=== PATIENT | female | born 1950 | race Caucasian/White ===

== ENCOUNTER 2016-08-08 16:17 | Emergency (ER) | payer MEDICARE, OTHER ==
[~2016-08-08] VITALS: Ht 160 cm; Wt 70.3 kg
[2016-08-08 19:36] LABS: BASOPHILS % (AUTO) 0.6 % (0.0-2.0); DIFF TOTAL % 100 %; EOSINOPHILS # (AUTO) 0.2 /CMM (0.0-0.7); HEMATOCRIT 39 % (33-45); HEMOGLOBIN 12.5 g/dL (11.5-14.8); LYMPHOCYTES # (AUTO) 2.2 /CMM (0.8-4.8); LYMPHOCYTES % (AUTO) 37.2 % (20.0-44.0); MEAN CORPUSCULAR HEMOGLOBIN 25 PG (26.0-33.0); MEAN CORPUSCULAR HGB CONC 32 g/dl (31.0-36.0); MEAN CORPUSCULAR VOLUME 77 fL (82-100); MONOCYTES # (AUTO) 0.5 /CMM (0.1-1.30); MONOCYTES % (AUTO) 7.9 % (2.0-12.0); NEUTROPHILS # (AUTO) 2.9 /CMM (1.8-8.9); NEUTROPHILS % (AUTO) 51.3 % (43.0-81.0); PLATELET COUNT (AUTO) 198 /CMM (150-450); RED BLOOD CELL COUNT(AUTO) 5.05 MIL/uL (4.0-5.2); WHITE BLOOD COUNT (AUTO) 5.8 K/uL (4.3-11.0)
[2016-08-08 19:43] LABS: ANION GAP 10 (5-14); CALCIUM, SERUM 9.7 mg/dL (8.5-10.1); CARBON DIOXIDE 29 mmol/L (21-32); CHLORIDE 107 mmol/L (98-107); CREATININE 0.7 mg/dL (0.6-1.3); GFR 84 mL/min (>60); GLUCOSE 105 mg/dL (74-106); POTASSIUM 3.5 mmol/L (3.5-5.1); SODIUM SERUM 142 mmol/L (136-145); UREA NITROGEN, BLOOD 11 mg/dL (7-18)
[2016-08-08 19:49] LABS: ALANINE AMINOTRANSFERASE 15 U/L (12-78); ALBUMIN 3.1 g/dL (3.4-5.0); ASPARTATE AMINOTRANSFERASE 14 U/L (15-37); BILIRUBIN,DIRECT 0.1 mg/dL (0.0-0.2); BILIRUBIN,TOTAL 0.4 mg/dL (0.2-1.0); INDIRECT BILIRUBIN 0.3 mg/dL (0.0-1.1); TOTAL PROTEIN, SERUM 7.1 g/dL (6.4-8.2)
[2016-08-08 20:14] LABS: SALICYLATE 1.1 mg/dL (2.8-20.0)
[2016-08-08 20:15] LABS: ACETAMINOPHEN 0 ug/ml (10-30)
[2016-08-08 21:12] VITALS: BP 155/80
== END 2016-08-08 21:14 | disposition home or self-care (01) ==
LOC: ER 16:23
DX: K62.89 Other specified diseases of anus and rectum (principal); I10 Essential (primary) hypertension; Z88.5 Allergy status to narcotic agent; Z88.8 Allergy status to other drugs, medicaments and biological substances; T76.11XA Adult physical abuse, suspected, initial encounter; Y92.89 Other specified places as the place of occurrence of the external cause; Y93.89 Activity, other specified; Y99.9 Unspecified external cause status
CPT/HCPCS: 36415; 80048; 80076; 85025; 99284; A4606; G0480; G0481; G0482; G6038-TC; G6039-TC; G6040-TC; Z7610

== ENCOUNTER 2017-04-29 10:44 | Inpatient (IN) | payer MEDICARE, OTHER ==
[~2017-04-29] VITALS: Ht 162.6 cm; Wt 68.0 kg
--- NOTE | 2017-04-29 10:50 | NUR ---
PAPO FROM [facility] DT GENERALIZED BODY PAIN AND LOST OF APPETITE X 2 DAYS;. PATIENT IS AA04. DENIES ABDOMINAL PAIN, SKIN IS WARM TO TOUCH AND NON DIAPHORETIC. PATIENT IS AFEBRILE. VSS
--- NOTE | 2017-04-29 10:54 | NUR ---
MD TRAN AT
[2017-04-29] MEDS ORDERED: IV NS 0.9% 1,000 ML BAG IV ONE ×2 (11:00→12:00)
[2017-04-29 11:11] LABS: BASOPHILS # (AUTO) 0.2 /CMM (0.0-0.2); EOSINOPHILS # (AUTO) 0.1 /CMM (0.0-0.7); EOSINOPHILS % (AUTO) 0.3 % (0.0-6.0); HEMATOCRIT 41 % (33-45); HEMOGLOBIN 13.9 g/dL (11.5-14.8); LYMPHOCYTES # (AUTO) 0.5 /CMM (0.8-4.8); LYMPHOCYTES % (AUTO) 2.9 % (20.0-44.0); MEAN CORPUSCULAR HEMOGLOBIN 27 PG (26.0-33.0); MEAN CORPUSCULAR HGB CONC 34 g/dl (31.0-36.0); MEAN CORPUSCULAR VOLUME 78 fL (82-100); MONOCYTES # (AUTO) 0.8 /CMM (0.1-1.30); NEUTROPHILS # (AUTO) 15.1 /CMM (1.8-8.9); NEUTROPHILS % (AUTO) 90.8 % (43.0-81.0); PLATELET COUNT (AUTO) 96 /CMM (150-450); RDW COEFFICIENT OF VARIATION 12.2 (11.5-15.0); RED BLOOD CELL COUNT(AUTO) 5.18 MIL/uL (4.0-5.2); WHITE BLOOD COUNT (AUTO) 16.7 K/uL (4.3-11.0)
--- NOTE | 2017-04-29 11:18 | NUR ---
IV ACCESS STARTED. BLOOD AND CULTURES DRAWN. FC INITIATEDM URINE SAMPLE OBTAINED. ALL SENT TO LABS. PT MEDICATED ORDERED.
[2017-04-29 11:22] LABS: APPEARANCE,URINE Turbid (CLEAR); BILIRUBIN,URINE Negative (NEGATIVE); BLOOD, URINE Large Ery/uL (NEGATIVE); COLOR,URINE Yellow (YELLOW); KETONES,URINE Negative (NEGATIVE); LEUKOCYTE ESTERASE ,URINE Large (NEGATIVE); NITRITE, URINE Negative (NEGATIVE); PH,URINE 8.5 (5.0-8.0); PROTEIN,URINE >=300 mg/dl (NEGATIVE); UGLUCOSE Negative (NEGATIVE)
[2017-04-29 11:24] LABS: INR 1.12 (0.87-1.13); PROTHROMBIN TIME 11.6 SECS (9.5-12.7)
[2017-04-29 11:26] LABS: BACTERIA,URINE Many /HPF (None Seen); RBC,URINE 0-3 /HPF (0-2); WBC,URINE 80-100 /HPF (0-3)
[2017-04-29 11:26] LABS: ALANINE AMINOTRANSFERASE 19 U/L (12-78); ALBUMIN 2.4 g/dL (3.4-5.0); ALKALINE PHOSPHATASE 117 U/L (46-116); ASPARTATE AMINOTRANSFERASE 15 U/L (15-37); BILIRUBIN,DIRECT 1.8 mg/dL (0.0-0.2); BILIRUBIN,TOTAL 2.3 mg/dL (0.2-1.0); CALCIUM, SERUM 9.1 mg/dL (8.5-10.1); CARBON DIOXIDE 20 mmol/L (21-32); CHLORIDE 92 mmol/L (98-107); CREATININE 3.9 mg/dL (0.6-1.3); GLUCOSE 132 mg/dL (74-106); POTASSIUM 3.1 mmol/L (3.5-5.1); SODIUM SERUM 125 mmol/L (136-145); TOTAL PROTEIN, SERUM 6.8 g/dL (6.4-8.2)
[2017-04-29 11:27] LABS: SQUAMOUS EPITHELIAL CELL,UR Few /HPF (None Seen)
[2017-04-29 11:28] LABS: TROPONIN I < 0.017 ng/mL (0.00-0.056)
[2017-04-29 11:31] LABS: UREA NITROGEN, BLOOD 92 mg/dL (7-18)
[2017-04-29] MEDS ORDERED: DULO60CA45 PO (11:39)
[2017-04-29] MEDS ORDERED: BACL10TA PO (11:39)
[2017-04-29] MEDS ORDERED: LORA0.5T PO (11:39)
[2017-04-29] MEDS ORDERED: HYDR25TA4 PO (11:39)
[2017-04-29] MEDS ORDERED: CALC500T51 PO (11:39)
[2017-04-29] MEDS ORDERED: ACET-868 PO (11:39)
[2017-04-29] MEDS ORDERED: CEFTRIAXONE 1GM BAG (ER ONLY) 50 ML IV ONE ×2 (11:42→12:00)
--- NOTE | 2017-04-29 11:47 | NUR ---
CALLED [employer], PLUSH FINISHER WAS PAGED.
[2017-04-29 12:34] LABS: SERUM AMMONIA 34 umol/L (11-32)
--- NOTE | 2017-04-29 12:35 | NUR ---
CALLED [facility] FOR REPORT BUT WAS PUT ON HOLD FOR 5 MINUTES.
[2017-04-29 12:37] LABS: BAND % (MANUAL) 7 % (0.0-5.0); LYMPHOCYTES % (MANUAL) 4 % (16-48); MONOCYTES % (MANUAL) 4 % (0-11.0); NEUTROPHILS % (MANUAL) 85 (42-76)
--- NOTE | 2017-04-29 12:45 | NUR ---
REPORT GIVEN TO KEVIN HARVEY FOR TELE [id number]
[2017-04-29] MEDS ORDERED: IV NS 0.9% 1,000 ML IV PRN ×2 (13:03→17:00)
[2017-04-29 13:30] VITALS: BP 106/79
[2017-04-29] MEDS ORDERED: ZOLPIDEM TARTRATE 5 MG TABLET PO PRN (13:30)
[2017-04-29] MEDS ORDERED: Z GUARD REMEDY 2 OZ OINT TP PRN (13:30)
[2017-04-29] MEDS ORDERED: MAGNESIUM HYDROXIDE 30 ML UDC PO PRN (13:30)
[2017-04-29] MEDS ORDERED: HYDROCODONE/APAP 5/325MG 1 EACH TABLET PO PRN (13:30)
[2017-04-29] MEDS ORDERED: LORAZEPAM 0.5 MG TABLET PO PRN (13:30)
[2017-04-29] MEDS ORDERED: MAG HYDROX/AL HYDROX/SIMETH 30 ML UDC PO PRN (13:30)
[2017-04-29] MEDS ORDERED: ONDANSETRON HCL/PF 4 MG/2 ML VIAL IVP PRN (13:30)
[2017-04-29] MEDS ORDERED: ACETAMINOPHEN 325 MG TABLET PO PRN (13:30)
--- NOTE | 2017-04-29 13:30 | NUR ---
SALESPERSON FASHION ACCESSORIES NOTES PATIENT ADMITTED FROM ER ON TELE Dx. OF UTI, SEPSIS. PATIENT A/O X2/3, GET IRRITABLE EASILY, REDIRECTABLE. PATIENT HAS NO RESPIRATORY DISTRESS, WAS C/O PAIN GENERALIZED, UNABLE TO DESCRIBE PAIN LEVEL, BUT REFUSED PAIN MEDICATION AT THIS TIME. PATIENT BED BOUND, DVT PUMP ON, ASSIST TURN AND REPOSITION Q 2 HR. PATIENT ON DENISE CATHETER DRAIN DARK OUTPUT, INCONTINENT. IV LINE ON RIGHT WRIST, STARTED NS 1000ML ON 125 ML/HR, INTACT, SKIN ASSESSMENT DONE, SKIN INTACT, BELONGING CHECKED, NO BELONGING, V/S TAKEN BP-106/79,T-98.2 7.8, P-18, R-96, O2-ROOM AIR 96, TELE MONITOR ON. BOYFRIEND NEXT TO THE BED. CALL LIGHT WITHIN TO REACH, SIDE RAILS UP X2, SAFETY PRECAUTION MAINTAINED ALL THE TIME.
[2017-04-29] MEDS: IV NS 0.9% 1,000 ML IV PRN ×2 (15:28→16:56)
[2017-04-29 16:00] VITALS: BP 130/95
[2017-04-29] MEDS: BACLOFEN (10 MG) 10 MG TABLET PO PRN (16:57)
[2017-04-29] MEDS: CALCIUM CARBONATE (1250) 500 MG TABLET PO SCH (16:57)
[2017-04-29] MEDS ORDERED: PIPERACILLIN /TAZOBACTAM 4.5 G in IV D5W 50 ML IV SCH (17:00)
--- NOTE | 2017-04-29 17:01 | NUR ---
RN NOTES/ PATIENT HR -109 SINUS RHYTHM, ADMINISTERED BACLOFEN 10 MG PO PRN FOR GENERALIZED PAIN, PT ANXIOUS, IRRITABLE, F/C DRAIN YELLOW OUTPUT, LACTIC ASID LEVEL IS 3.3, DR CHEN PRESCRIBED NS 1000 ML BOLUS, AND NS 150 ML/HR, SCHEDULED PO MEDICATION ADMINISTERED, V/S STABLE, BOYFRIEND NEXT TO THE BED, CALL LIGHT WITHIN TO REACH, SAFETY PRECAUTION MAINTAINED ALL THE TIME, ASSIST TURN AND REPOSITION Q 2 HR.
[2017-04-29] MEDS: PIPERACILLIN /TAZOBACTAM 2.25 G in IV D5W 50 ML IV SCH (17:57)
[2017-04-29 18:01] LABS: CALCIUM, SERUM 7.8 mg/dL (8.5-10.1); CREATININE 3.2 mg/dL (0.6-1.3)
[2017-04-29 18:05] LABS: POTASSIUM 2.7 mmol/L (3.5-5.1)
[2017-04-29] MEDS ORDERED: POTASSIUM CHLORIDE 20 MEQ TAB.PRT.SR PO ONE (18:30)
--- NOTE | 2017-04-29 19:00 | NUR ---
MS RN OPENING NOTES PATIENT RESTING IN BED A/O X 1, NO ACUTE DISTRESS NOTED. BREATHING EVEN AND UNLABORED, NO SOB NOTED. SAFETY MEASURES IN PLACE, BED LOCKED AND IN LOWEST POSITION, CALL LIGHT IN REACH. WILL CONTINUE TO MONITOR.
--- NOTE | 2017-04-29 19:07 | NUR ---
RN NOTES PATIENT IN THE BED, A/O X2/3, STABLE, MED COMPLIANT, INFUSING IV ON RIGHT WRIST NS 150 ML/HR, INTACT, V/S STABLE, NO RESPIRATORY DISTRESS, NO C/O PAIN AT THIS TIME. ASSIST TURN AND REPOSITION Q 2 HR, DVT PUMP ON, CALL LIGHT WITHIN TO REACH, SAFETY PRECAUTION MAINTAINED ALL THE TIME. ENDORSED ONCOMING NURSE FOR CONTINUATION OF CARE.
[2017-04-29 20:00] VITALS: BP 128/58
[2017-04-30] VITALS (7 sets, daily range): BP systolic 119–155; BP diastolic 50–77
[2017-04-30] MEDS: IV NS 0.9% 1,000 ML IV PRN ×3 (00:58→20:29)
[2017-04-30] MEDS: PIPERACILLIN /TAZOBACTAM 2.25 G in IV D5W 50 ML IV SCH ×3 (01:02→18:37)
--- NOTE | 2017-04-30 05:00 | NUR ---
COSTUME SEAMSTRESS NOTES REPORTED TO DR. MCDANIELS AND SPOKE TO HIM ABOUT THE RESULT OF THE RECENT BLOOD CULTURE NO NEW ORDERS
[2017-04-30 05:56] LABS: CHOLESTEROL 94 mg/dL (<200); EOSINOPHILS % (AUTO) 0.3 % (0.0-6.0); HEMATOCRIT 33 % (33-45); HEMOGLOBIN 11.3 g/dL (11.5-14.8); LDL 38 mg/dL (0-99); LYMPHOCYTES # (AUTO) 0.4 /CMM (0.8-4.8); LYMPHOCYTES % (AUTO) 3.5 % (20.0-44.0); MEAN CORPUSCULAR HEMOGLOBIN 27 PG (26.0-33.0); MEAN CORPUSCULAR HGB CONC 34 g/dl (31.0-36.0); MEAN CORPUSCULAR VOLUME 80 fL (82-100); MONOCYTES # (AUTO) 0.6 /CMM (0.1-1.30); MONOCYTES % (AUTO) 5.7 % (2.0-12.0); NEUTROPHILS # (AUTO) 9.8 /CMM (1.8-8.9); NEUTROPHILS % (AUTO) 90.5 % (43.0-81.0); PLATELET COUNT (AUTO) 56 /CMM (150-450); RDW COEFFICIENT OF VARIATION 13.4 (11.5-15.0); RED BLOOD CELL COUNT(AUTO) 4.14 MIL/uL (4.0-5.2); TRIGLYCERIDES 188 mg/dL (30-150); WHITE BLOOD COUNT (AUTO) 10.9 K/uL (4.3-11.0)
[2017-04-30 06:04] LABS: CALCIUM, SERUM 8.1 mg/dL (8.5-10.1); CARBON DIOXIDE 17 mmol/L (21-32); CHLORIDE 109 mmol/L (98-107); GLUCOSE 92 mg/dL (74-106); MAGNESIUM 2.1 mg/dL (1.8-2.4); PHOSPHORUS 2.8 mg/dL (2.5-4.9); POTASSIUM 3.5 mmol/L (3.5-5.1); SODIUM SERUM 139 mmol/L (136-145)
[2017-04-30 06:05] LABS: UREA NITROGEN, BLOOD 83 mg/dL (7-18)
--- NOTE | 2017-04-30 06:33 | NUR ---
FLEXO OPERATOR CLOSING NOTES PATIENT COMFORTABLY ASLEEP AND EASILY AWAKEN, HEAD OF BED ELEVATED FOR BETTER LUNG EXPANSION, ATTACH TO TELE MTR, TOLERATING ROOM AIR 02 SAT AT 100% IV HYDRATION NS ONGOING AT 150MLS/HR CC, IV SITE NO S/S OF INFILTRATED PATENT AND FLUSHED, PATIENT DENIES PAIN AT THIS TIME. RESPIRATIONS EVEN AND UNLABORED., NO S/S OF ACUTE DISTRESS, NO SOB, NO COUGH, NO CONGESTION, SKIN WARM AND DRY TO TOUCH, AFEBRILE, ALL NURSING CARE RENDERED, NEEDS ATTENDED AND ANTICIPATED, KEPT CLEAN AND DRY AND COMFORTABLE, GOOD SKIN CARE PROVIDED. ALL DUE MEDS WAS GIVEN FREQUENT VISUAL CHECK DONE FOR SAFETY EVERY 2 HOURS. SAFE HAZARD FREE ENVIRONMENT PROVIDED. CALL LIGHT WITHIN EASY TO REACH, ON LOW BED AT ALL TIMES TO ENSURE SAFETY, WILL ENDORSE TO THE NEXT SHIFT CONTINUE PLAN OF CARE. FC DRAINING YELLOW VIA GRAVITY WITH NO SEDIMENTS NO HEMATURIA NO CLOUDINESS. GOOD FC CARE PROVIDED. REPOSITIONED Q2H FOR SKIN MGT.
[2017-04-30 06:51] LABS: HDL CHOLESTEROL < 10 mg/dL (40-60)
--- NOTE | 2017-04-30 07:30 | NUR ---
received pt. am alert and oriented x2,moans off and on.
[2017-04-30 08:37] LABS: BAND % (MANUAL) 5 % (0.0-5.0); LYMPHOCYTES % (MANUAL) 4 % (16-48); MONOCYTES % (MANUAL) 5 % (0-11.0); NEUTROPHILS % (MANUAL) 86 (42-76)
[2017-04-30] MEDS: CALCIUM CARBONATE (1250) 500 MG TABLET PO SCH ×2 (09:00→17:00)
--- NOTE | 2017-04-30 09:30 | NUR ---
friend calling in and upset about pt,s transferring facility.spoke to rn at length,regarding this.iv infusing,pt. groggy at this time.f/c to grv. drainage.
[2017-04-30] MEDS: TRAMADOL HCL 50 MG TABLET PO PRN ×2 (11:16→18:50)
--- NOTE | 2017-04-30 13:00 | NUR ---
swallow eval. ordered,speech tx. recommending pureed diet
--- NOTE | 2017-04-30 14:30 | NUR ---
pt. pulled out iv in am and restart with #24 lt. hand.
--- NOTE | 2017-04-30 17:00 | NUR ---
midline placed lt. upper arm by
--- NOTE | 2017-04-30 18:00 | NUR ---
med. x1 with ativan and x2 with ultram.
--- NOTE | 2017-04-30 19:45 | NUR ---
TELE/RN NOTES PT RECEIVED RESTING COMFORTABLY IN BED. HOB ELEVATED. A/OX2. ON ROOM AIR, BREATHING EVEN AND UNLABORED. NO S/S OF SOB, DENIES PAIN. ON TELE MONITOR SHOWING SR WITH HR 84. DENISE IN PLACE AND DRAINING TO GRAVITY. IV TO LEFT WRIST AND GURINDER MIDLINE PATENT AND INTACT. BED IN LOW/LOCKED POSITION WITH CALL LIGHT IN REACH. BED ALARM ON. SIDE RAILS UPX2. WILL CONTINUE TO MONITOR
[2017-04-30] MEDS: DULOXETINE HCL 30 MG CAPSULE.DR PO SCH (22:37)
[2017-05-01] VITALS: BP 130/77
[2017-05-01] MEDS: PIPERACILLIN /TAZOBACTAM 2.25 G in IV D5W 50 ML IV SCH ×2 (02:31→10:40)
[2017-05-01 04:00] VITALS: BP 142/93
[2017-05-01] MEDS: IV NS 0.9% 1,000 ML IV PRN ×3 (04:08→22:24)
--- NOTE | 2017-05-01 06:41 | NUR ---
TELE/RN CLOSING NOTES PT ASLEEP, EASILY AROUSABLE. A/OX2, ON ROOM AIR, BREATHING EVEN AND UNLABORED. DENIES SOB OR PAIN. ON TELE MONITOR SHOWING SINUS RHYTHM WITH HR 71. DENISE IN PLACE AND DRAINING CLEAR YELLOW URINE TO GRAVITY. IV TO LEFT HAND AND GURINDER MIDLINE PATENT AND INTACT RUNNING IVF ORDERED. NO SIGNIFICANT CHANGES OVERNIGHT. MADE PT COMFORTABLE DURING SHIFT. TURNED/REPOSITIONED Q2H. WILL ENDORSE TO AM SHIFT RITA.
[2017-05-01 07:36] LABS: EOSINOPHILS # (AUTO) 0.1 /CMM (0.0-0.7); EOSINOPHILS % (AUTO) 1.3 % (0.0-6.0); HEMATOCRIT 31 % (33-45); HEMOGLOBIN 10.1 g/dL (11.5-14.8); LYMPHOCYTES # (AUTO) 0.5 /CMM (0.8-4.8); LYMPHOCYTES % (AUTO) 4.8 % (20.0-44.0); MEAN CORPUSCULAR HEMOGLOBIN 27 PG (26.0-33.0); MEAN CORPUSCULAR HGB CONC 33 g/dl (31.0-36.0); MEAN CORPUSCULAR VOLUME 81 fL (82-100); MONOCYTES % (AUTO) 9.5 % (2.0-12.0); NEUTROPHILS # (AUTO) 8.9 /CMM (1.8-8.9); NEUTROPHILS % (AUTO) 84.4 % (43.0-81.0); PLATELET COUNT (AUTO) 75 /CMM (150-450); RED BLOOD CELL COUNT(AUTO) 3.79 MIL/uL (4.0-5.2); WHITE BLOOD COUNT (AUTO) 10.6 K/uL (4.3-11.0)
[2017-05-01 07:57] LABS: CALCIUM, SERUM 8.4 mg/dL (8.5-10.1); CREATININE 2.4 mg/dL (0.6-1.3); POTASSIUM 2.9 mmol/L (3.5-5.1)
[2017-05-01 08:08] VITALS: BP 137/84
[2017-05-01] MEDS: CALCIUM CARBONATE (1250) 500 MG TABLET PO SCH ×2 (09:00→16:47)
[2017-05-01 09:42] LABS: BAND % (MANUAL) 1 % (0.0-5.0); LYMPHOCYTES % (MANUAL) 6 % (16-48); MONOCYTES % (MANUAL) 10 % (0-11.0); NEUTROPHILS % (MANUAL) 83 (42-76)
--- NOTE | 2017-05-01 10:00 | NUR ---
SIGNIFICANT OTHER IN TO VISIT.
--- NOTE | 2017-05-01 10:30 | NUR ---
PT. VOMITED MOD. AMT. CLEAR YELLOW FLUID WHILE SP TX CHECKING SWALLOW REFLEX.DR. COBIAN NOTIFIED AND MADE PT. NPO.
[2017-05-01] MEDS ORDERED: POTASSIUM CHLORIDE 20 MEQ POWDER PACKET GT SCH (11:00)
[2017-05-01] MEDS: POTASSIUM CL. PREMIX PERIPHER. 50 ML IV SCH ×2 (11:30→12:23)
--- NOTE | 2017-05-01 15:00 | NUR ---
OMER FROM DR. FLORES'S OFFICE IN AND SHORTLY AFTER PT. ON ISOLATION FOR ESBL IN URINE AND BLOOD.DR. COBIAN PUT PT. ON MERREM.
[2017-05-01 16:00] VITALS: BP 137/96
[2017-05-01] MEDS: MEROPENEM 500 MG in IV NS 0.9% 50 ML IV SCH (16:46)
--- NOTE | 2017-05-01 19:30 | NUR ---
RN OPENING NOTES PT RECEIVED RESTING IN BED. AOX2. ON ROOM AIR, BREATHING EVEN AND UNLABORED. PT IS VERBALLY AGGRESSIVE AT THIS TIME. PROVIDED EMOTIONAL SUPPORT AND REDIRECTED. DENISE IN PLACE AND DRAINING TO GRAVITY. IV TO LEFT HAND AND GURINDER MIDLINE PATENT AND INTACT RUNNING IVF ORDERED. BED IN LOW/LOCKED POSITION WITH CALL LIGHT IN REACH. SIDE RAILS UPX3 WITH BED ALARM ON. WILL CONTINUE TO MONITOR
[2017-05-01 20:00] VITALS: BP 120/71
[2017-05-01] MEDS: DULOXETINE HCL 30 MG CAPSULE.DR PO SCH (22:15)
[2017-05-02] MEDS: MEROPENEM 500 MG in IV NS 0.9% 50 ML IV SCH ×2 (03:57→14:01)
[2017-05-02] MEDS: IV NS 0.9% 1,000 ML IV PRN (05:52)
--- NOTE | 2017-05-02 06:36 | NUR ---
RN CLOSING NOTES PT AWAKE, A/OX1-2, VERBALLY AND PHYSICALLY AGGRESSIVE UPON CHANGING. REORIENTED PRN. ON ROOM AIR, BREATHING EVEN AND UNLABORED. NO S/S OF SOB, PAIN OR APPARENT DISTRESS. DENISE IN PLACE AND DRAINING TO GRAVITY. IV LEFT HAND AND GURINDER MIDLINE PATENT AND INTACT RUNNING IVF ORDERED. STOOL FOR OB COLLECTED AND SENT TO LAB. MADE PT COMFORTABLE POSSIBLE DURING SHIFT. TURNED/REPOSITIONED Q2H. BED IN LOW/LOCKED POSITION, CALL LIGHT IN REACH. SIDE RAILS UPX3 AND BED ALARM ON. WILL ENDORSE TO AM SHIFT RITA.
--- NOTE | 2017-05-02 07:20 | NUR ---
RN NOTES PT IS IN BED, SLEEPING COMFORTABLY. PT ON RA, RESPIRATIONS ARE EVEN AND UNLABORED. IV ON L HAND INTACT AND SL, GURINDER MIDLINE INTACT AND RUNNING NS @ 150ML/HR. DENISE CATHETER IS INTACT AND DRAINING. SAFETY MEASURES ARE IN PLACE, CALL LIGHT IS IN REACH. WILL CONTINUE TO MONITOR.
[2017-05-02 08:00] VITALS: BP 137/70
[2017-05-02 08:27] LABS: EOSINOPHILS # (AUTO) 0.1 /CMM (0.0-0.7); EOSINOPHILS % (AUTO) 0.7 % (0.0-6.0); HEMATOCRIT 33 % (33-45); LYMPHOCYTES # (AUTO) 0.7 /CMM (0.8-4.8); LYMPHOCYTES % (AUTO) 5.5 % (20.0-44.0); MEAN CORPUSCULAR HEMOGLOBIN 27 PG (26.0-33.0); MEAN CORPUSCULAR HGB CONC 33 g/dl (31.0-36.0); MEAN CORPUSCULAR VOLUME 81 fL (82-100); MONOCYTES # (AUTO) 0.8 /CMM (0.1-1.30); MONOCYTES % (AUTO) 6.5 % (2.0-12.0); NEUTROPHILS # (AUTO) 11.3 /CMM (1.8-8.9); NEUTROPHILS % (AUTO) 87.3 % (43.0-81.0); PLATELET COUNT (AUTO) 99 /CMM (150-450); RDW COEFFICIENT OF VARIATION 14.2 (11.5-15.0); RED BLOOD CELL COUNT(AUTO) 4.07 MIL/uL (4.0-5.2)
[2017-05-02] MEDS: CALCIUM CARBONATE (1250) 500 MG TABLET PO SCH ×2 (08:34→16:04)
[2017-05-02 08:46] LABS: CALCIUM, SERUM 8.6 mg/dL (8.5-10.1); CREATININE 2.2 mg/dL (0.6-1.3); PHOSPHORUS 3.4 mg/dL (2.5-4.9); POTASSIUM 3.2 mmol/L (3.5-5.1)
[2017-05-02 10:13] LABS: BAND % (MANUAL) 1 % (0.0-5.0); EOSINOPHILS % (MANUAL) 2 % (0-4); MONOCYTES % (MANUAL) 5 % (0-11.0); NEUTROPHILS % (MANUAL) 92 (42-76)
[2017-05-02] MEDS: POTASSIUM CL. PREMIX PERIPHER. 50 ML IV SCH ×2 (11:00→11:29)
[2017-05-02] MEDS: IV 1/2NS 1000 ML 1,000 ML IV PRN ×2 (11:34→22:05)
[2017-05-02 16:00] VITALS: BP 119/96
--- NOTE | 2017-05-02 18:47 | NUR ---
RN NOTES PT IS IN BED, RESTING COMFORTABLY WITH BOYFRIEND AT BEDSIDE. PT ON RA, RESPIRATIONS ARE EVEN AND UNLABORED. IV ON L HAND INTACT AND PATENT, SL. GURINDER MIDLINE INTACT AND PATENT, RUNNING 1/2NS @ 100ML/HR. DENISE IS IN PLACE AND DRAINING, OUTPUT 1000ML. SKIN CARE PROVIDED FOR PT. ALL MEDS WERE GIVEN ORDERED. PT READY FOR DISCHARGE BUT NEEDS ARRANGEMENTS FOR EITHER SNF OR HOME HEALTH TO CONTINUE IV ANTIBIOTICS. SAFETY MEASURES ARE IN PLACE, CALL LIGHT IS IN REACH. WILL ENDORSE TO FOOD TRUCK CATERER RN FOR CONTINUITY OF CARE.
--- NOTE | 2017-05-02 19:30 | NUR ---
RN NOTES PT IS IN BED ALERT AND ORIENTED X2. AGGRESSIVE AT TIMES. VS STABLE. ON RA, RESPIRATIONS ARE EVEN AND UNLABORED. NO RESPIRATORY DISTRESS NOTED. NO SOB. NO C/O PAIN AT THIS TIME. IV ON L HAND INTACT AND PATENT SL. GURINDER MIDLINE INTACT AND PATENT. INFUSING 1/2NS @ 100ML/HR. DENISE IS IN PLACE AND DRAINING CLEAR AND YELLOW URINE. SKIN CLEAN AND DRY. BED IN LOW POSITION. SIDE RAILSX2. CALL LIGHT WITHIN EASY REACH. WILL CONTINUE TO MONITOR.
[2017-05-02 20:00] VITALS: BP 134/73
[2017-05-02] MEDS: DULOXETINE HCL 30 MG CAPSULE.DR PO SCH (21:21)
[2017-05-03] MEDS: MEROPENEM 500 MG in IV NS 0.9% 50 ML IV SCH ×2 (02:24→15:01)
--- NOTE | 2017-05-03 06:56 | NUR ---
RN CLOSING NOTES PT IS IN BED SLEEPING ALERT AND ORIENTED X2. AGGRESSIVE AT TIMES. VS STABLE. ON RA, RESPIRATIONS ARE EVEN AND UNLABORED. NO RESPIRATORY DISTRESS NOTED. NO SOB. NO C/O PAIN AT THIS TIME. IV ON L HAND INTACT AND PATENT SL. GURINDER MIDLINE INTACT AND PATENT. INFUSING 1/2NS @ 100ML/HR. DENISE IS IN PLACE. URINE OUTPUT 950 ML. ALL MEDICATIONS GIVEN PER MD ORDER. BED IN LOW POSITION. SIDE RAILSX2. CALL LIGHT WITHIN EASY REACH. WILL ENDORSE TO RN DAY SHIFT FOR CONTINUITY OF CARE.
--- NOTE | 2017-05-03 07:25 | NUR ---
MS RN OPENING NOTES PT RECEIVED AWAKE IN BED IN NO ACUTE SIGNS OF DISTRESS. A/O X2, SAME VERBALLY RESPONSIVE, DENIES PAIN OR DISCOMFORTS AT THIS TIME. ON ROOM AIR, BREATHING EVEN AND UNLABORED. IV ACCESS ON LEFT HAND INTACT AND PATENT. PT ALSO HAS GURINDER MIDLINE IN PLACED WITH 1/2 NS INFUSING WELL. HAS DENISE CATHETER IN PLACED AND ACTIVELY VOIDING CLEAR YELLOW URINE TO URINARY BAG AT BEDSIDE. CONTACT PRECAUTIONS IN PLACED FOR ESBL OF URINE. BED IN LOW AND LOCKED POSITION WITH SIDE-RAILS UP X 2. CALL LIGHT WITHIN REACH. WILL CONTINUE TO MONITOR ACCORDINGLY.
[2017-05-03 07:54] LABS: BASOPHILS % (AUTO) 0.2 % (0.0-2.0); EOSINOPHILS # (AUTO) 0.2 /CMM (0.0-0.7); HEMATOCRIT 31 % (33-45); HEMOGLOBIN 10.1 g/dL (11.5-14.8); LYMPHOCYTES % (AUTO) 8.7 % (20.0-44.0); MEAN CORPUSCULAR HEMOGLOBIN 26 PG (26.0-33.0); MEAN CORPUSCULAR HGB CONC 33 g/dl (31.0-36.0); MEAN CORPUSCULAR VOLUME 80 fL (82-100); MONOCYTES # (AUTO) 0.7 /CMM (0.1-1.30); MONOCYTES % (AUTO) 6.2 % (2.0-12.0); NEUTROPHILS # (AUTO) 9.3 /CMM (1.8-8.9); NEUTROPHILS % (AUTO) 82.9 % (43.0-81.0); PLATELET COUNT (AUTO) 120 /CMM (150-450); RDW COEFFICIENT OF VARIATION 14.2 (11.5-15.0); RED BLOOD CELL COUNT(AUTO) 3.84 MIL/uL (4.0-5.2); WHITE BLOOD COUNT (AUTO) 11.2 K/uL (4.3-11.0)
[2017-05-03 08:00] VITALS: BP 145/75
[2017-05-03 08:05] LABS: CALCIUM, SERUM 8.2 mg/dL (8.5-10.1); CREATININE 1.9 mg/dL (0.6-1.3); MAGNESIUM 1.6 mg/dL (1.8-2.4); PHOSPHORUS 2.7 mg/dL (2.5-4.9)
[2017-05-03 08:16] LABS: POTASSIUM 2.8 mmol/L (3.5-5.1)
[2017-05-03] MEDS: CALCIUM CARBONATE (1250) 500 MG TABLET PO SCH ×2 (09:00→17:38)
[2017-05-03] MEDS ORDERED: POTASSIUM CHLORIDE 20 MEQ TAB.PRT.SR PO ONE (10:30)
[2017-05-03] MEDS ORDERED: Magnesium 1GM/D5W 100ML PREMIX 100 ML IV SCH ×2 (10:30→11:00)
--- NOTE | 2017-05-03 10:35 | NUR ---
RN NOTES PATIENT REFUSED MOST OF HER MORNING P.O. MEDS DESPITE ENCOURAGEMENT AND EXPLAINING THE BENEFITS/IMPORTANCE OF TAKING THEM. WILL CONTINUE TO MONITOR. Addendum: 05/03/17 at 1854 by SALTY LAGUNAS RN CORRECTION: WRONG PATIENT SHOULD BE PT IN RM 315-2
--- NOTE | 2017-05-03 11:05 | NUR ---
RN NOTES PT NOTED WITH LOW POTASSIUM 2.8 AND REPLACED WITH K-DUR 40MEQ P.O. AND LOW MG 1.6 AND REPLACED WITH 1GM/100ML D5W X1. WILL CONTINUE TO MONITOR.
[2017-05-03] MEDS ORDERED: Potassium Chloride 10 MEQ, LIDOCAINE HCL/PF 1% 1 ML in IV D5W 50 ML IV SCH (12:23)
[2017-05-03] MEDS: POTASSIUM PHOSPHATE MM 5 MMOL in IV D5W 100 ML IV SCH ×2 (14:13→15:57)
[2017-05-03 16:00] VITALS: BP 155/73
--- NOTE | 2017-05-03 19:34 | NUR ---
MS RN CLOSING NOTES PT AWAKE AND RESTING IN BED. HOB KET ELEVATED. A/O X2, SAME VERBALLY RESPONSIVE. ALL NEEDS AND CARE PROVIDED WELL. ON ROOM AIR, BREATHING EVEN AND UNLABORED. MIDLINE ON GURINDER INTACT AND PATENT WITH NS + 40 MEQ OF KCL AT 100ML/HR INFUSING WELL. DENISE CATHETER IN PLACED AND ACTIVELY DRAINING CLEAR YELLOW URINE TO URINARY BAG AT BEDSIDE. CONTACT PRECAUTIONS MAINTAINED FOR ESBL OF URINE. KEPT BED IN LOW AND LOCKED POSITION WITH SIDE-RAILS UP X 2. CALL LIGHT WITHIN REACH ENDORSED TO LICENSED ACUPUNCTURIST NURSE FOR RITA.
--- NOTE | 2017-05-03 19:45 | NUR ---
RN OPENING NOTES RECEIVED REPORT FROM SOWMYA CRESPO RN. FOUND PT ASLEEP IN BED. NO S/S OF ACUTE DISTRESS OR SOB NOTED. EQUAL CHEST RISE AND FALL. Pt IS A/OX2, CONFUSED AT TIMES, AND FORGETFUL, AGGRESSIVE AT TIMES BUT IS VERBAL, & ABLE TO MAKE NEEDS KNOWN. DENISE CATHETER IN PLACE. IV ACCESS ON GURINDER MIDLINE, IVF KCL 40MEQ W/ 1/2NS @100ML/HR. SAFETY MEASURES IN PLACE. BED LOW, LOCKED, HOB ELEVATED, SIDE RAILS UP, CALL LIGHT WITHIN REACH. BED ALARM ON. WILL CONTINUE TO MONITOR Pt FOR SAFETY.
[2017-05-03 20:00] VITALS: BP 163/81
[2017-05-03] MEDS: DULOXETINE HCL 30 MG CAPSULE.DR PO SCH (21:29)
[2017-05-04] MEDS: MEROPENEM 500 MG in IV NS 0.9% 50 ML IV SCH ×2 (03:22→14:13)
--- NOTE | 2017-05-04 06:54 | NUR ---
RN CLOSING NOTES NO SIGNIFICANT CHANGES IN Pt's CONDITION. Pt REMAINS STABLE AT THIS TIME. NO S/S OF ACUTE DISTRESS OR SOB NOTED DURING SHIFT. ALL NEEDS MET AND ATTENDED TO. SAFETY MEASURES IN PLACE. WILL ENDORSE TO DAYSHIFT RN FOR Pt's RITA.
--- NOTE | 2017-05-04 07:26 | NUR ---
MS/RN OPENING NOTES PT RECEIVED AWAKE IN BED IN NO ACUTE SIGNS OF DISTRESS. A/O X2. VERBALLY RESPONSIVE, DENIES PAIN OR DISCOMFORTS AT THIS TIME. ON ROOM AIR, BREATHING EVEN AND UNLABORED. DENISE CATHETER IN PLACE WITH CLEAR YELLOW URINE NOTED ON URINARY BAG. GURINDER MIDLINE IN PLACED WITH IVF OF KCL 40MEQ WITH 1/2NS @100ML/HR IN PROGRESS. BED LOW AND LOCKED, HOB ELEVATED WITH SIDE RAILS UP X2, CALL LIGHT WITHIN REACH. BED ALARM ON. ALL SAFETY MEASURES WILL BE MAINTAINED. WILL CONTINUE TO MONITOR PT ACCORDINGLY.
[2017-05-04 07:57] LABS: BASOPHILS % (AUTO) 0.2 % (0.0-2.0); EOSINOPHILS # (AUTO) 0.3 /CMM (0.0-0.7); EOSINOPHILS % (AUTO) 2.3 % (0.0-6.0); HEMATOCRIT 30 % (33-45); HEMOGLOBIN 10.4 g/dL (11.5-14.8); LYMPHOCYTES # (AUTO) 1.5 /CMM (0.8-4.8); LYMPHOCYTES % (AUTO) 13.1 % (20.0-44.0); MEAN CORPUSCULAR HEMOGLOBIN 27 PG (26.0-33.0); MEAN CORPUSCULAR HGB CONC 35 g/dl (31.0-36.0); MEAN CORPUSCULAR VOLUME 78 fL (82-100); MONOCYTES # (AUTO) 0.7 /CMM (0.1-1.30); NEUTROPHILS # (AUTO) 9.2 /CMM (1.8-8.9); NEUTROPHILS % (AUTO) 78.4 % (43.0-81.0); PLATELET COUNT (AUTO) 143 /CMM (150-450); RDW COEFFICIENT OF VARIATION 13.9 (11.5-15.0); RED BLOOD CELL COUNT(AUTO) 3.84 MIL/uL (4.0-5.2); WHITE BLOOD COUNT (AUTO) 11.7 K/uL (4.3-11.0)
[2017-05-04 08:00] VITALS: BP 160/76
[2017-05-04 08:16] LABS: CREATININE 1.6 mg/dL (0.6-1.3); MAGNESIUM 1.7 mg/dL (1.8-2.4); PHOSPHORUS 2.8 mg/dL (2.5-4.9); POTASSIUM 4.1 mmol/L (3.5-5.1)
[2017-05-04] MEDS: CALCIUM CARBONATE (1250) 500 MG TABLET PO SCH ×2 (08:46→16:28)
[2017-05-04] MEDS ORDERED: Magnesium 1GM/D5W 100ML PREMIX 100 ML IV SCH (10:23)
--- NOTE | 2017-05-04 11:36 | NUR ---
RN NOTES SEEN AND EVALUATED BY MANAGER OF EXHIBITIONS AND COLLECTIONS THIS MORNING, PT NOT EATING WELL AND NOT GETTING ENOUGH NUTRITION. RECOMMENDED TO GIVE BOOST LACTOSE FREE TID. WILL CONTINUE TO MONITOR
--- NOTE | 2017-05-04 11:42 | NUR ---
RN NOTES PT NOTED WITH LOW MAGNESIUM LEVEL 1.7, REPLACED WITH 1GM/100ML D5W X1. WILL CONTINUE TO MONITOR
[2017-05-04] MEDS: BOOST FOOD- BERRY 237 ML BOX PO SCH ×2 (13:07→16:28)
[2017-05-04 16:00] VITALS: BP 121/83
--- NOTE | 2017-05-04 18:48 | NUR ---
M/RN CLOSING NOTES PT AWAKE AND WATCHING TV IN BED AT THIS TIME. A/O X2, SAME VERBALLY RESPONSIVE WITH PERIODS OF CONFUSION NOTED DURING THE DAY. ON ROOM AIR, TOLERATING WELL WITH NO SOB NOTED. MIDLINE ON GURINDER INTACT AND PATENT WITH NS + 40 MEQ OF KCL @ 100ML/HR INFUSING WELL. DENISE CATHETER IN PLACED AND ACTIVELY DRAINING CLEAR YELLOW URINE TO DRAINAGE BAG AT BEDSIDE. CONTACT PRECAUTIONS MAINTAINED FOR ESBL OF URINE. HOB KEPT ELEVATED. MAINTAINED BED IN LOW AND LOCKED POSITION WITH SIDE-RAILS UP X 2. CALL LIGHT WITHIN REACH. ALL NEEDS/CARE PROVIDED WELL. WILL ENDORSED TO ENGINEERING DIRECTOR NURSE FOR RITA.
--- NOTE | 2017-05-04 19:40 | NUR ---
RN OPENING NOTES RECEIVED REPORT FROM DAYSHIFT WES DENG. FOUND Pt ASLEEP IN BED. NO S/S OF ACUTE DISTRESS OR SOB NOTED. EQUAL CHEST RISE AND FALL, WITH UNLABORED BREATHING. Pt IS A/OX2, CONFUSED AT TIMES, BUT IS VERBAL, AND ABLE TO MAKE NEEDS KNOWN. NO SIGNS OF PAIN AT THIS TIME. DENISE CATH IN PLACE, DRAINING WELL. IV ACCESS ON GURINDER MIDLINE #18G, IVF KCL 40MEQ @100ML/HR. SAFETY MEASURES IN PLACE. BED LOW, LOCKED, HOB ELEVATED, SIDE RAILS UP, CALL LIGHT AND BEDSIDE TABLE WITHIN REACH. WILL CONTINUE TO MONITOR Pt THROUGHOUT THE NIGHT FOR SAFETY.
[2017-05-04 20:00] VITALS: BP 142/75
[2017-05-04] MEDS: DULOXETINE HCL 30 MG CAPSULE.DR PO SCH (21:41)
[2017-05-05] MEDS: MEROPENEM 500 MG in IV NS 0.9% 50 ML IV SCH ×2 (02:53→14:55)
--- NOTE | 2017-05-05 06:43 | NUR ---
RN CLOSING NOTES NO SIGNIFICANT CHANGES IN Pt's CONDITION DURING THE SHIFT. Pt REMAINS STABLE. NO S/S OF ACUTE DISTRESS OR SOB NOTED DURING THE NIGHT. ALL NEEDS MET AND ATTENDED TO. SAFETY MEASURES IN PLACE. WILL ENDORSE TO DAYSHIFT RN FOR Pt's RITA.
[2017-05-05 07:17] LABS: CREATININE 1.3 mg/dL (0.6-1.3); MAGNESIUM 1.6 mg/dL (1.8-2.4); POTASSIUM 4.6 mmol/L (3.5-5.1)
--- NOTE | 2017-05-05 07:49 | NUR ---
MS RN: INITIAL NOTE RECEIVED PT A/OX2. ON CONTACT ISOLATION FOR ESBL OF URINE AND BLOOD. DENISE CATH IN PLACE AND DRAINING. NO DISTRESS NOTED. NO PAIN NOTED. NO SOB NOTED. L UA MIDLINE RUNNING KCL @ 100ML/HR. SITE CLEAR AND PATENT. NO REDNESS NOTED. ON PUREED DIET. RESTING COMFORTABLY IN BED. CALL LIGHT WITHIN REACH.
[2017-05-05 08:00] VITALS: BP 143/73
[2017-05-05] MEDS: CALCIUM CARBONATE (1250) 500 MG TABLET PO SCH ×2 (08:54→17:00)
[2017-05-05] MEDS: BOOST FOOD- BERRY 237 ML BOX PO SCH ×3 (08:54→17:00)
[2017-05-05] MEDS: Magnesium 1GM/D5W 100ML PREMIX 100 ML IV SCH ×2 (12:01→13:11)
[2017-05-05] MEDS: IV 1/2NS 1000 ML 1,000 ML IV PRN (14:56)
[2017-05-05 16:00] VITALS: BP 144/81
--- NOTE | 2017-05-05 18:41 | NUR ---
MS RN: CLOSING NOTE PT A/OX2. SLIGHTLY CONFUSED SOMETIMES. DENISE CATH IN PLACE AND DRAINING. 2500ML OUT. ON PUREED DIET. L UA MIDLINE RUNNING 1/2 NS AT 100ML/HR. SITE CLEAR AND PATENT. NO BLEEDING OR REDNESS NOTED. TOOK ALL MEDICATIONS ON TIME. NO ADVERSE REACTIONS NOTED. ON CONTACT ISOLATION FOR ESBL OF URINE AND BLOOD. RESTING COMFORTABLY IN BED. CALL LIGHT WITHIN REACH.
--- NOTE | 2017-05-05 19:30 | NUR ---
MS RN OPENING NOTES: PATIENT IN BED, AOX3, ON ROOM AIR, BREATHING EVEN AND UNLABORED. APPEARS CALM AND IN NO DISTRESS, STARTING TO EAT DINNER. DENIES PAIN AT THIS TIME. GURINDER MIDLINE INTACT AND INFUSING WELL WITH 1/2 NS RUNNING AT 75 ML/HR. DENISE CATHETER IN PLACE DRAINING CLEAR YELLOW URINE. PROVIDED FOR COMFORT AND SAFETY. ASSISTED WITH DINNER. BED IN LOWEST AND LOCKED POSITION, SIDERAILS UPX3. CALL LIGHT WITHIN REACH. WILL CONT TO MONITOR.
[2017-05-05 20:00] VITALS: BP 141/82
[2017-05-05] MEDS: DULOXETINE HCL 30 MG CAPSULE.DR PO SCH (22:00)
[2017-05-06] MEDS: IV 1/2NS 1000 ML 1,000 ML IV PRN ×2 (01:36→13:54)
[2017-05-06] MEDS: MEROPENEM 500 MG in IV NS 0.9% 50 ML IV SCH ×2 (03:01→15:23)
--- NOTE | 2017-05-06 06:44 | NUR ---
MS RN CLOSING NOTES: PATIENT IN BED, AOX2, ON ROOM AIR, BREATHING EVEN AND UNLABORED. APPEARS CALM AND IN NO DISTRESS. DENIES PAIN. GURINDER MIDLINE INTACT AND PATENT, INFUSING WELL WITH 1/2 NS RUNNING AT 75 ML/HR. DENISE CATHETER IN PLACE DRAINING CLEAR YELLOW URINE. DUE MEDS GIVEN. NEEDS ATTENDED. BED BATH GIVEN. TURNED ND REPOSITIONED IN BED Q 2 HRS. NO ACUTE CHANGE IN CONDITION THROUGH SHIFT. PROVIDED FOR COMFORT AND SAFETY. WILL ENDORSE TO AM RN FOR RITA.
[2017-05-06 07:14] LABS: BASOPHILS % (AUTO) 0.2 % (0.0-2.0); EOSINOPHILS # (AUTO) 0.2 /CMM (0.0-0.7); EOSINOPHILS % (AUTO) 1.5 % (0.0-6.0); HEMATOCRIT 29 % (33-45); LYMPHOCYTES # (AUTO) 1.2 /CMM (0.8-4.8); LYMPHOCYTES % (AUTO) 10.8 % (20.0-44.0); MEAN CORPUSCULAR HEMOGLOBIN 27 PG (26.0-33.0); MEAN CORPUSCULAR HGB CONC 35 g/dl (31.0-36.0); MEAN CORPUSCULAR VOLUME 79 fL (82-100); MONOCYTES # (AUTO) 0.5 /CMM (0.1-1.30); MONOCYTES % (AUTO) 4.2 % (2.0-12.0); NEUTROPHILS # (AUTO) 9.4 /CMM (1.8-8.9); NEUTROPHILS % (AUTO) 83.3 % (43.0-81.0); PLATELET COUNT (AUTO) 147 /CMM (150-450); RDW COEFFICIENT OF VARIATION 13.5 (11.5-15.0); WHITE BLOOD COUNT (AUTO) 11.3 K/uL (4.3-11.0)
[2017-05-06 07:29] LABS: CALCIUM, SERUM 7.9 mg/dL (8.5-10.1); MAGNESIUM 1.7 mg/dL (1.8-2.4); PHOSPHORUS 3.2 mg/dL (2.5-4.9); POTASSIUM 4.1 mmol/L (3.5-5.1)
[2017-05-06 08:00] VITALS: BP 150/71
[2017-05-06] MEDS: BOOST FOOD- BERRY 237 ML BOX PO SCH ×3 (08:36→16:38)
[2017-05-06] MEDS: CALCIUM CARBONATE (1250) 500 MG TABLET PO SCH ×2 (08:36→16:38)
--- NOTE | 2017-05-06 09:23 | NUR ---
RN Notes Resting quietly on bed, breakfast served taken well. With ongoing IV 1/2 NS at 75 cc/hr infusing well. IV access on left upper arm intact. Lungs CTA, still with +2 pitting edema on bilateral foot and legs, elevated on a pillow. Assisted to reposition in bed. Call light placed within easy reach.
--- NOTE | 2017-05-06 11:18 | NUR ---
WOUND CARE CONSULT: PT PRESENTS WITH INCONTINENCE OF LOOSE STOOL. PT HAS CURRENT FRANCIS SCORE OF 14. RECOMMENDATIONS MADE FOR SKIN PROTECTION. DISCUSSED WITH NURSING STAFF AND VALVE MECHANIC. RECOMMEND ISOFLEX LOW AIRLOSS BED. ZONIA BED TO BE PLACED WHEN AVAILABLE. PT NOTED TO HAVE GENERALIZED EDEMA WITH 3+ PITTING EDEMA TO FEET. WILL SEE PRN. MEDINA IN AGREEMENT WITH PLAN OF CARE. Addendum: 05/06/17 at 1121 by GLADIS YUEN WNDNU Amended: Links added.
[2017-05-06] MEDS: Magnesium 1GM/D5W 100ML PREMIX 100 ML IV SCH ×2 (12:16→13:54)
[2017-05-06 16:00] VITALS: BP 115/73
[2017-05-06] MEDS ORDERED: ERTA1VIA2 IV (16:24)
[2017-05-06] MEDS: BACLOFEN (10 MG) 10 MG TABLET PO PRN (16:38)
--- NOTE | 2017-05-06 19:17 | NUR ---
RN Notes Resting well with no complain at this time. Needs anticipated. No untoward symptom noted within the shift. Will endorse to foreign service officer nurse for continuity of care.
--- NOTE | 2017-05-06 19:30 | NUR ---
MS/RN RECEIVE PATIENT AWAKE, ALERT, ORIENTED, COMFORTABLE, NO C/O PAIN, NO DISTRESS NOTED, CALL LIGHT IN REACH. WILL MONITOR.
[2017-05-06 20:00] VITALS: BP 150/70
[2017-05-06] MEDS: HYDROCHLOROTHIAZIDE 25 MG TABLET PO SCH (21:29)
[2017-05-06] MEDS: DULOXETINE HCL 30 MG CAPSULE.DR PO SCH (21:32)
--- NOTE | 2017-05-07 00:31 | NUR ---
MS/RN PATIENT IS SLEEPING AT THIS TIME, EASILY AROUSABLE, APPEAR COMFORTABLE, NO SIGNS OF DISTRESS NOTED, CALL LIGHT IN REACH, WILL CONTINUE TO MONITOR.
[2017-05-07] MEDS: IV 1/2NS 1000 ML 1,000 ML IV PRN ×2 (01:58→13:40)
[2017-05-07] MEDS: MEROPENEM 500 MG in IV NS 0.9% 50 ML IV SCH ×2 (03:21→14:34)
--- NOTE | 2017-05-07 06:19 | NUR ---
MS/RN PATIENT IS AWAKE, ALERT, ORIENTED, COMFORTABLE, NO CHANGE IN CONDITION. ALL NEEDS ATTENDED AT THIS TIME. WILL CONTINUE TO MONITOR.
[2017-05-07 07:13] LABS: BASOPHILS % (AUTO) 0.3 % (0.0-2.0); EOSINOPHILS # (AUTO) 0.2 /CMM (0.0-0.7); HEMATOCRIT 27 % (33-45); HEMOGLOBIN 9.2 g/dL (11.5-14.8); LYMPHOCYTES # (AUTO) 1.3 /CMM (0.8-4.8); LYMPHOCYTES % (AUTO) 12.7 % (20.0-44.0); MEAN CORPUSCULAR HEMOGLOBIN 27 PG (26.0-33.0); MEAN CORPUSCULAR HGB CONC 34 g/dl (31.0-36.0); MEAN CORPUSCULAR VOLUME 79 fL (82-100); MONOCYTES # (AUTO) 0.5 /CMM (0.1-1.30); MONOCYTES % (AUTO) 5.4 % (2.0-12.0); NEUTROPHILS % (AUTO) 79.6 % (43.0-81.0); PLATELET COUNT (AUTO) 171 /CMM (150-450); RDW COEFFICIENT OF VARIATION 13.6 (11.5-15.0); RED BLOOD CELL COUNT(AUTO) 3.46 MIL/uL (4.0-5.2); WHITE BLOOD COUNT (AUTO) 10.1 K/uL (4.3-11.0)
[2017-05-07 07:41] LABS: MAGNESIUM 1.7 mg/dL (1.8-2.4); PHOSPHORUS 3.6 mg/dL (2.5-4.9); POTASSIUM 3.7 mmol/L (3.5-5.1)
[2017-05-07 08:00] VITALS: BP 147/73
[2017-05-07] MEDS: HYDROCHLOROTHIAZIDE 25 MG TABLET PO SCH (08:26)
[2017-05-07] MEDS: CALCIUM CARBONATE (1250) 500 MG TABLET PO SCH ×2 (08:27→17:05)
[2017-05-07] MEDS: BOOST FOOD- BERRY 237 ML BOX PO SCH ×3 (08:29→17:05)
--- NOTE | 2017-05-07 08:30 | NUR ---
MS RN PATIENT IS AWAKE, A/O X3. REPOSITION IN BED, MADE COMFORTABLE, DUE MEDS GIVEN, TAKEN WITHOUT DIFFICULTY. MIDLINE GURINDER PATENT AND INTACT, 1/2 NS INFUSING AT 100ML/HR. DENISE CATH DRAINING TO GRAVITY, NO C/O BLADDER DISCOMFORT. ON CONTACT ISOLATION ESBL BLOOD, URINE. CALL LIGHT WITHIN REACH. WILL CONT TO MONITOR.
[2017-05-07] MEDS: Magnesium 1GM/D5W 100ML PREMIX 100 ML IV SCH ×2 (11:41→12:39)
[2017-05-07] MEDS: BACLOFEN (10 MG) 10 MG TABLET PO PRN (14:33)
[2017-05-07 16:00] VITALS: BP 148/69
--- NOTE | 2017-05-07 16:28 | NUR ---
PATIENT TO BE DISCHARGED ORDERED. CM TO ARRANGE PLACEMENT.
--- NOTE | 2017-05-07 18:53 | NUR ---
MS CLOSING NOTES PATIENT IS SEEN BY DR. RAMÍREZ TODAY, PATIENT WILL BE DISCHARGED WITH ANTIBIOTIC IV. AWAITING FOR SNF PLACEMENT. PATIENT REMAINS STABLE DURING THE SHIFT, MAGNESIUM SUPPLEMENTED. GURINDER MIDLINE PATENT AND INTACT, FLUSHES WELL. DENISE CATH IN PLACE, NO C/O BLADDER DISCOMFORT. PATIENT REFUSED TO BE CHANGED AND RECEIVED EVENING HYGIENE CARE, PER PATIENT SHE IS COMFORTABLE AT THE MOMENT AND PREFERS TO BE CHANGED LATER TONIGHT. WILL ENDORSE TO PROOF PASSER RN FOR CONTINUITY OF CARE.
--- NOTE | 2017-05-07 19:40 | NUR ---
MS RN NOTE RECEIVED PATIENT FROM DAY SHIFT, PATIENT IS ALERT AND ORIENTEDX3, NO S/S OF RESPIRATORY DISTRESS OR PAIN AT THIS TIME. MID LINE ON LEFT UPPER ARM IS PATENT AND INTACT, HL ONLY. DENISE CATH PRESENT WITH CLEAR YELLOW URINE NOTED. SRX2, BED IN LOW POSITION, CALL LIGHT WITHIN REACH, WILL CONTINUE TO MONITOR PATIENT.
[2017-05-07 20:00] VITALS: BP 155/83
[2017-05-07] MEDS: DULOXETINE HCL 30 MG CAPSULE.DR PO SCH (22:24)
[2017-05-08] MEDS: MEROPENEM 500 MG in IV NS 0.9% 50 ML IV SCH ×2 (03:01→14:54)
--- NOTE | 2017-05-08 06:45 | NUR ---
MS RN NOTE PATIENT IS SLEEPING IN BED COMFORTABLY, NO ACUTE EVENT NOTED THROUGHOUT THE SHIFT. MIDLINE ON LEFT UPPER ARM IS PATENT AND INTACT, HL ONLY. WILL ENDORSE TO DAY SHIFT NURSE FOR RITA.
--- NOTE | 2017-05-08 07:35 | NUR ---
MS RN OPENING NOTE PATIENT IS ALERT AND ORIENTED x3. NO PAIN AT THIS TIME. NO SOB OR DISTRESS NOTED. CALL LIGHT WITHIN REACH. SAFETY MEASURES IMPLEMENTED. ABLE TO COMMUNICATE NEEDS. DENISE CATHETER IN PLACE, NO CLOUDY APPEARANCE NOTED AT THIS TIME. IV ON LEFT UPPER ARM INTACT AND PATENT NO REDNESS OR SWELLING, FLUSHES WELL. MECHANICAL SOFT DIET. ON ISOLATION FOR ESBL OF URINE AND BLOOD. ISOLATION PRECAUTIONS IMPLEMENTED. LABS THIS MORNING, AWAITING RESULTS. UPON DISCHARGE PATIENT WILL BE ON IV ANTIBIOTICS FOR 10 DAYS, AWAITING PLACEMENT. WILL CONTINUE TO MONITOR
[2017-05-08 07:43] LABS: CALCIUM, SERUM 8.1 mg/dL (8.5-10.1); CREATININE 0.8 mg/dL (0.6-1.3); MAGNESIUM 1.7 mg/dL (1.8-2.4); POTASSIUM 3.8 mmol/L (3.5-5.1)
[2017-05-08 08:00] VITALS: BP 157/78
[2017-05-08] MEDS: BOOST FOOD- BERRY 237 ML BOX PO SCH ×3 (08:24→16:38)
[2017-05-08] MEDS: CALCIUM CARBONATE (1250) 500 MG TABLET PO SCH ×2 (08:25→16:37)
[2017-05-08] MEDS: HYDROCHLOROTHIAZIDE 25 MG TABLET PO SCH (08:25)
[2017-05-08] MEDS: Magnesium 1GM/D5W 100ML PREMIX 100 ML IV SCH ×2 (10:15→11:14)
[2017-05-08] MEDS ORDERED: PETROLATUM,WHITE PACKET 5 GM PACKET TP PRN (14:30)
[2017-05-08 16:00] VITALS: BP 148/86
--- NOTE | 2017-05-08 18:35 | NUR ---
MS RN CLOSING NOTE PATIENT IS ALERT AND ORIENTED x3. NO PAIN AT THIS TIME. NO SOB OR DISTRESS NOTED. CALL LIGHT WITHIN REACH AT ALL TIMES. SAFETY MEASURES IMPLEMENTED. ABLE TO COMMUNICATE NEEDS. ALL DUE MEDICATIONS GIVEN ORDERED. LEFT UPPER ARM MIDLINE INTACT AND PATENT NO REDNESS OR SWELLING NOTED. DENISE CATHETER IN PLACE, NO CLOUDY APPEARANCE NOTED. DENISE OUTPUT-2000 ML. PATIENT REFUSED MULTIPLE TIMES FOR CHANGING OF LINENS AND PERIANAL CARE. MECHANICAL SOFT DIET, TOLERATING WELL. MAGNESIUM OF 1.7 REPLACED WITH TWO BAGS EARLIER TODAY.PER DIGITAL TECH NURSE GURINDER CLINE TO BE LEFT IN UPON DISCHARGE FOR IV ANTIBIOTIC ADMINISTRATION FOR 10 DAYS. CASE MANAGEMENT WORKING ON DISCHARGE PLANNING, PATIENT AND FAMILY AT BEDSIDE AWARE. ON ROOM AIR O2 SATURATION AT 96%. WILL ENDORSE TO DIGITAL TECH NURSE FOR RITA
[2017-05-08 20:00] VITALS: BP 119/71
[2017-05-08] MEDS: DULOXETINE HCL 30 MG CAPSULE.DR PO SCH (22:34)
[2017-05-09] MEDS: MEROPENEM 500 MG in IV NS 0.9% 50 ML IV SCH (02:50)
[2017-05-09 06:47] LABS: CALCIUM, SERUM 8.6 mg/dL (8.5-10.1); MAGNESIUM 1.8 mg/dL (1.8-2.4); POTASSIUM 3.9 mmol/L (3.5-5.1)
--- NOTE | 2017-05-09 06:48 | NUR ---
MS RN NOTE PATIENT IS SLEEPING IN BED COMFORTABLY, NO ACUTE EVENT NOTED THROUGHOUT THE SHIFT. MIDLINE ON LEFT UPPER ARM IS PATENT AND INTACT, HL ONLY. PT IS PENDING DISCHARGE TODAY. WILL ENDORSE TO DAY SHIFT NURSE FOR RITA.
--- NOTE | 2017-05-09 07:44 | NUR ---
MS RN OPENING NOTE PATIENT IS ALERT AND ORIENTED x3. NO PAIN AT THIS TIME. NO SOB OR DISTRESS NOTED. CALL LIGHT WITHIN REACH. SAFETY MEASURES IMPLEMENTED. ON CONTACT ISOLATION FOR ESBL OF BLOOD AND URINE. DENISE CATHETER IN PLACE, NO CLOUDY APPEARANCE NOTED. ABLE TO COMMUNICATE NEEDS. LEFT UPPER MIDLINE INTACT AND PATENT NO REDNESS OR SWELLING, MIDLINE TO STAY IN ONCE DISCHARGED. VITALS ARE STABLE. POSSIBLE DISCHARGE TODAY TO [facility], WILL FOLLOW UP WITH CASE MANAGEMENT. WILL CONTINUE TO MONITOR
[2017-05-09 08:00] VITALS: BP 121/79
[2017-05-09] MEDS: CALCIUM CARBONATE (1250) 500 MG TABLET PO SCH (08:50)
[2017-05-09] MEDS: BOOST FOOD- BERRY 237 ML BOX PO SCH ×2 (08:50→13:00)
[2017-05-09 08:51] VITALS: BP 121/79
[2017-05-09] MEDS: HYDROCHLOROTHIAZIDE 25 MG TABLET PO SCH (08:51)
--- NOTE | 2017-05-09 14:30 | NUR ---
MS NET LEAD ARCHITECT NOTE PATIENT IS ALERT AND ORIENTED x3. NO PAIN AT THIS TIME. NO SOB OR DISTRESS NOTED. CALL LIGHT WITHIN REACH AT ALL TIMES. SAFETY MEASURES IMPLEMENTED. ALL DUE MEDICATIONS GIVEN ORDERED. ALL NURSING CARE NEEDS ATTENDED TO. DENISE CATHETER IN PLACE, NO CLOUDY URINE NOTED. GURINDER MIDLINE INTACT AND PATENT NO REDNESS OR SWELLING NOTED, PATIENT WILL BE ON ANTIBIOTICS FOR 10 DAYS. ALL DISCHARGE INSTRUCTIONS GIVEN TO WES SCHAEFER AT [facility]. ALL TEACHING VERBALLY READ BACK. PATIENT HAS NO BELONGINGS WITH HER AT BEDSIDE. REFUSED SKIN PHOTOS x3. LEFT VIA AMBULANCE WITH TWO COMPILATION CLERK.
== END 2017-05-09 14:20 | DRG 871 ==
LOC: ER 10:46 → TELE 12:55 → MED 05-01 08:49
PROVIDERS: ADMIT Internal Medicine; ATTEND Internal Medicine
PROC: 05H633Z Insertion of Infusion Device into Left Subclavian Vein, Percutaneous Approach (ICD-10-PCS; principal; 2017-04-30)
DX: A41.51 Sepsis due to Escherichia coli [E. coli] (principal); G93.41 Metabolic encephalopathy; N17.9 Acute kidney failure, unspecified; E44.0 Moderate protein-calorie malnutrition; E87.2 Acidosis; E87.1 Hypo-osmolality and hyponatremia; N39.0 Urinary tract infection, site not specified; E87.0 Hyperosmolality and hypernatremia; E87.6 Hypokalemia; G35 Multiple sclerosis; K72.90 Hepatic failure, unspecified without coma; K21.9 Gastro-esophageal reflux disease without esophagitis; M62.50 Muscle wasting and atrophy, not elsewhere classified, unspecified site; Z88.5 Allergy status to narcotic agent; Z88.8 Allergy status to other drugs, medicaments and biological substances; E78.5 Hyperlipidemia, unspecified; F41.9 Anxiety disorder, unspecified; I10 Essential (primary) hypertension; Z73.6 Limitation of activities due to disability; M85.80 Other specified disorders of bone density and structure, unspecified site; M19.90 Unspecified osteoarthritis, unspecified site; I12.9 Hypertensive chronic kidney disease with stage 1 through stage 4 chronic kidney disease, or unspecified chronic kidney disease; N18.9 Chronic kidney disease, unspecified; R65.20 Severe sepsis without septic shock; B95.2 Enterococcus as the cause of diseases classified elsewhere; K80.20 Calculus of gallbladder without cholecystitis without obstruction; N20.0 Calculus of kidney; K76.0 Fatty (change of) liver, not elsewhere classified; Z16.12 Extended spectrum beta lactamase (ESBL) resistance; Z79.899 Other long term (current) drug therapy; Z82.49 Family history of ischemic heart disease and other diseases of the circulatory system
CPT/HCPCS: 36415; 36569; 71010-TC; 76700-TC; 80048-TC; 80061-TC; 80076-TC; 81000-TC; 82140-TC; 82272-TC; 82962-TC; 83605-TC; 83735-TC; 84100-TC; 84484-TC; 85025-TC; 85730-TC; 87040-TC; 87081-TC; 87086-TC; 87186-TC; 92526; 92611-TC; A4216; A4606; J0696; J2185; J2405; J2543; J3475; J3480; J3490; J7030; J7042; J7060; Z7610

== ENCOUNTER 2024-04-16 13:49 | Inpatient (IN) | payer MEDICARE, OTHER ==
[~2024-04-16] VITALS: Ht 160 cm; Wt 69.4 kg
[~2024-04-16 13:49] MED LIST: ACET-868 PO; BACL10TA PO; CALC500T53 PO; DULO60CA45 PO; ERTA1VIA2 IV; HYDR25TA4 PO; LORA0.5T PO
[2024-04-16 14:33] LABS: BASOPHILS # (AUTO) 0.1 K/uL (0.0-0.2); BASOPHILS % (AUTO) 0.8 % (0.0-2.0); EOSINOPHILS # (AUTO) 0.4 K/uL (0.0-0.7); EOSINOPHILS % (AUTO) 6.3 % (0.0-6.0); HEMATOCRIT 32 % (33-45); HEMOGLOBIN 10.8 g/dL (11.5-14.8); LYMPHOCYTES # (AUTO) 1.4 K/uL (0.8-4.8); LYMPHOCYTES % (AUTO) 21.6 % (20.0-44.0); MEAN CORPUSCULAR HEMOGLOBIN 31 PG (26.0-33.0); MEAN CORPUSCULAR HGB CONC 34 g/dl (31.0-36.0); MEAN CORPUSCULAR VOLUME 91 fL (82-100); MONOCYTES # (AUTO) 0.4 K/uL (0.1-1.30); MONOCYTES % (AUTO) 6.7 % (2.0-12.0); NEUTROPHILS # (AUTO) 4.1 K/uL (1.8-8.9); NEUTROPHILS % (AUTO) 64.6 % (43.0-81.0); PLATELET COUNT (AUTO) 131 K/uL (150-450); RED BLOOD CELL COUNT(AUTO) 3.51 MIL/uL (4.0-5.2); RED CELL DISTRIBUTION WIDTH 12.7 % (11.5-15.0); WHITE BLOOD COUNT (AUTO) 6.3 K/uL (4.3-11.0)
[2024-04-16 14:41] LABS: CARBON DIOXIDE 24 mmol/L (21-32); CHLORIDE 99 mmol/L (98-107); CREATININE 2.7 mg/dL (0.6-1.3); GLUCOSE 115 mg/dL (74-106); POTASSIUM 4.3 mmol/L (3.5-5.1); SODIUM SERUM 131 mmol/L (136-145); UREA NITROGEN, BLOOD 38 mg/dL (7-18)
[2024-04-16 14:46] LABS: CALCIUM, SERUM 9.7 mg/dL (8.5-10.1)
[2024-04-16] MEDS ORDERED: HYDR-4076 PO (14:56)
[2024-04-16] MEDS ORDERED: GABA300C PO (14:56)
[2024-04-16] MEDS ORDERED: METH5TAB70 PO (14:56)
[2024-04-16] MEDS ORDERED: LACT10SO58 PO (14:56)
[2024-04-16] MEDS ORDERED: SEVE800T8 PO (14:57)
[2024-04-16] MEDS ORDERED: POLY17PO4 PO ×2 (14:57)
[2024-04-16] MEDS ORDERED: QUET50TA PO (14:57)
[2024-04-16] MEDS ORDERED: PROTEIN PO (14:57)
[2024-04-16] MEDS ORDERED: FOLI0.8T23 PO (14:57)
[2024-04-16] MEDS ORDERED: SENN8.6T19 PO (14:57)
[2024-04-16] MEDS ORDERED: PANT40TA2 PO (14:57)
[2024-04-16] MEDS ORDERED: CEFTRIAXONE 1GM BAG (ER ONLY) 50 ML IV ONE (15:27)
[2024-04-16] MEDS: CEFTRIAXONE 1GM BAG (ER ONLY) 1 GM/50 ML PIGGYBACK IV ONE (15:28)
[2024-04-16] MEDS ORDERED: ONDANSETRON HCL/PF 4 MG/2 ML VIAL IVP PRN (15:30)
[2024-04-16] MEDS ORDERED: MAGNESIUM HYDROXIDE 30 ML UDC PO PRN (15:30)
[2024-04-16 16:19] LABS: APPEARANCE,URINE Cloudy (CLEAR); BILIRUBIN,URINE Negative (NEGATIVE); BLOOD, URINE Small Ery/uL (NEGATIVE); COLOR,URINE LIGHT YELLOW (YELLOW); KETONES,URINE Negative (NEGATIVE); LEUKOCYTE ESTERASE ,URINE Large (NEGATIVE); NITRITE, URINE Negative (NEGATIVE); PH,URINE 7.5 (5.0-8.0); PROTEIN,URINE 100 mg/dl (NEGATIVE); UGLUCOSE Negative (NEGATIVE); UROBILINOGEN,URINE 0.2 EU/dL (0.2)
[2024-04-16] MEDS: GABAPENTIN 300 MG CAPSULE PO SCH (17:29)
[2024-04-16] MEDS: hydrALAZINE HCL 25 MG TABLET PO SCH (17:29)
[2024-04-16] MEDS: SEVELAMER CARBONATE 800 MG TABLET PO SCH (17:29)
[2024-04-16] MEDS: SENNOSIDES 8.6 MG TABLET PO SCH (17:29)
[2024-04-16] MEDS: LACTULOSE 10 G/15 ML UDC (PYXIS) PO SCH (17:30)
[2024-04-16 19:59] LABS: ADD URINE CULTURE YES; BACTERIA,URINE Many /HPF (None Seen); SQUAMOUS EPITHELIAL CELL,UR Few /HPF (None Seen); WBC,URINE 21-50 /HPF (0-3)
[2024-04-16 20:00] VITALS: BP 139/82; TEMP 98.1; O2SAT 99
[2024-04-16] MEDS: QUETIAPINE FUMARATE 25 MG TABLET PO SCH (21:18)
[2024-04-16] MEDS: POLYETHYLENE GLYCOL 3350 17 GM POWD.PACK PO SCH (21:18)
[2024-04-16] MEDS: ACETAMINOPHEN 325 MG TABLET PO PRN (21:19)
[2024-04-17 04:00] VITALS: BP 130/80; TEMP 97.7; O2SAT 99
[2024-04-17] MEDS: PANTOPRAZOLE 40 MG TABLET.DR PO SCH (07:30)
[2024-04-17 08:00] VITALS: BP 135/61; TEMP 97.5; O2SAT 97
[2024-04-17] MEDS: VIT B CMPLX 3/FA/VIT C/BIOTIN 1 TAB TABLET PO SCH (09:00)
[2024-04-17] MEDS: METHIMAZOLE (5MG) 5 MG TABLET PO SCH (09:00)
[2024-04-17 12:16] LABS: BASOPHILS % (AUTO) 0.4 % (0.0-2.0); EOSINOPHILS # (AUTO) 0.4 K/uL (0.0-0.7); EOSINOPHILS % (AUTO) 6.7 % (0.0-6.0); HEMATOCRIT 34 % (33-45); HEMOGLOBIN 11.4 g/dL (11.5-14.8); LYMPHOCYTES # (AUTO) 1.3 K/uL (0.8-4.8); LYMPHOCYTES % (AUTO) 22.3 % (20.0-44.0); MEAN CORPUSCULAR HEMOGLOBIN 31 PG (26.0-33.0); MEAN CORPUSCULAR HGB CONC 33 g/dl (31.0-36.0); MEAN CORPUSCULAR VOLUME 93 fL (82-100); MONOCYTES # (AUTO) 0.4 K/uL (0.1-1.30); MONOCYTES % (AUTO) 7.6 % (2.0-12.0); NEUTROPHILS # (AUTO) 3.6 K/uL (1.8-8.9); PLATELET COUNT (AUTO) 123 K/uL (150-450); RED BLOOD CELL COUNT(AUTO) 3.72 MIL/uL (4.0-5.2); RED CELL DISTRIBUTION WIDTH 12.9 % (11.5-15.0); WHITE BLOOD COUNT (AUTO) 5.6 K/uL (4.3-11.0)
[2024-04-17 12:22] LABS: CALCIUM, SERUM 10.2 mg/dL (8.5-10.1); CARBON DIOXIDE 23 mmol/L (21-32); CHLORIDE 104 mmol/L (98-107); CREATININE 2.8 mg/dL (0.6-1.3); GLUCOSE 95 mg/dL (74-106); MAGNESIUM 2.5 mg/dL (1.8-2.4); PHOSPHORUS 5.2 mg/dL (2.5-4.9); POTASSIUM 4.8 mmol/L (3.5-5.1); SODIUM SERUM 138 mmol/L (136-145); UREA NITROGEN, BLOOD 47 mg/dL (7-18)
[2024-04-17] MEDS ORDERED: FENTANYL PF 100MCG/2ML AMPUL ONE ×2 (14:10→16:57)
[2024-04-17] MEDS ORDERED: ROCURONIUM BROMIDE 50 MG/5 ML ONE (14:11)
[2024-04-17 16:00] VITALS: BP 129/58; TEMP 97.9; O2SAT 100
[2024-04-17] MEDS: CEFTRIAXONE 1 G in IV D5W 50 ML IV SCH (16:20)
[2024-04-17] MEDS ORDERED: ANESTHESIA TRAY IN PYXIS 1 EA TRAY MC ONE (18:00)
[2024-04-17] MEDS ORDERED: BACITRACIN ZINC OINT (15 GM) 15 GM TUBE TP ONE (18:29)
[2024-04-17 21:16] VITALS: BP 131/62; O2SAT 100
[2024-04-18 08:00] VITALS: BP 148/68; TEMP 97.9; O2SAT 100
[2024-04-18] MEDS: METHYL SALICYLATE/MENTHOL 28GM 28 GM TUBE TP PRN (09:37)
[2024-04-18] MEDS ORDERED: CEPH500C2 PO (10:24)
[2024-04-18 16:00] VITALS: BP 123/62; TEMP 97.8; O2SAT 98
[2024-04-18 20:00] VITALS: BP 136/66; TEMP 97.7; O2SAT 99
[2024-04-19 08:00] VITALS: BP 146/68; TEMP 97.4; O2SAT 98
[2024-04-19 16:00] VITALS: BP 122/68; TEMP 98.1; O2SAT 96
[2024-04-19 20:00] VITALS: BP 120/74; TEMP 98.1; O2SAT 97
[2024-04-20 04:00] VITALS: BP 139/65; TEMP 97.4; O2SAT 97
[2024-04-20 08:00] VITALS: BP 140/64; TEMP 98.1; O2SAT 97
[2024-04-20 08:02] LABS: BASOPHILS # (AUTO) 0.1 K/uL (0.0-0.2); BASOPHILS % (AUTO) 1.1 % (0.0-2.0); EOSINOPHILS # (AUTO) 0.4 K/uL (0.0-0.7); EOSINOPHILS % (AUTO) 7.5 % (0.0-6.0); HEMATOCRIT 31 % (33-45); HEMOGLOBIN 10.4 g/dL (11.5-14.8); LYMPHOCYTES # (AUTO) 1.5 K/uL (0.8-4.8); LYMPHOCYTES % (AUTO) 31.3 % (20.0-44.0); MEAN CORPUSCULAR HEMOGLOBIN 31 PG (26.0-33.0); MEAN CORPUSCULAR HGB CONC 34 g/dl (31.0-36.0); MEAN CORPUSCULAR VOLUME 91 fL (82-100); MONOCYTES # (AUTO) 0.5 K/uL (0.1-1.30); MONOCYTES % (AUTO) 9.2 % (2.0-12.0); NEUTROPHILS # (AUTO) 2.5 K/uL (1.8-8.9); NEUTROPHILS % (AUTO) 50.9 % (43.0-81.0); PLATELET COUNT (AUTO) 150 K/uL (150-450); RED BLOOD CELL COUNT(AUTO) 3.39 MIL/uL (4.0-5.2); WHITE BLOOD COUNT (AUTO) 4.9 K/uL (4.3-11.0)
[2024-04-20 08:42] LABS: CALCIUM, SERUM 10.1 mg/dL (8.5-10.1); CARBON DIOXIDE 21 mmol/L (21-32); CHLORIDE 97 mmol/L (98-107); CREATININE 3.4 mg/dL (0.6-1.3); GLUCOSE 104 mg/dL (74-106); MAGNESIUM 2.9 mg/dL (1.8-2.4); PHOSPHORUS 5.2 mg/dL (2.5-4.9); POTASSIUM 4.2 mmol/L (3.5-5.1); SODIUM SERUM 132 mmol/L (136-145); UREA NITROGEN, BLOOD 59 mg/dL (7-18)
[2024-04-20 16:00] VITALS: BP 121/69; TEMP 97.5; O2SAT 99
[2024-04-20] MEDS: ALTEPLASE CATHFLO 2 MG/VIAL XX ONE (18:23)
[2024-04-20 20:00] VITALS: BP 134/79; TEMP 97.9; O2SAT 99
[2024-04-21 04:00] VITALS: BP 122/67; TEMP 97.8; O2SAT 100
[2024-04-21 08:00] VITALS: BP 118/58; TEMP 97.7; O2SAT 97
[2024-04-21 14:00] VITALS: BP 101/55; TEMP 97.9; O2SAT 96
[2024-04-21] MEDS: MEROPENEM 500 MG in IV NS 0.9% 50 ML IV SCH (14:32)
[2024-04-21 16:00] VITALS: BP 101/55; TEMP 97.9; O2SAT 96
[2024-04-21 20:00] VITALS: BP 128/100; TEMP 99.1; O2SAT 98
[2024-04-22 04:00] VITALS: BP 131/63; TEMP 98.8; O2SAT 97
[2024-04-22 08:00] VITALS: BP 128/66; TEMP 97.9; O2SAT 98
[2024-04-22 16:00] VITALS: BP 130/64; TEMP 97.9; O2SAT 96
[2024-04-23] MEDS ORDERED: MEROPENEM 500 MG in IV NS 0.9% 50 ML IV SCH (02:00)
== END 2024-04-22 18:18 | DRG 674 ==
LOC: ER 14:27 → MEDSG1 15:48
PROVIDERS: ADMIT Nurse Practitioner Acute Care
PROC: 0JH63XZ Insertion of Tunneled Vascular Access Device into Chest Subcutaneous Tissue and Fascia, Percutaneous Approach (ICD-10-PCS; principal; 2024-04-17)
PROC: 0JPT3XZ Removal of Tunneled Vascular Access Device from Trunk Subcutaneous Tissue and Fascia, Percutaneous Approach (ICD-10-PCS; 2024-04-17)
PROC: 5A1D70Z Performance of Urinary Filtration, Intermittent, Less than 6 Hours Per Day (ICD-10-PCS; 2024-04-17)
PROC: 05PY33Z Removal of Infusion Device from Upper Vein, Percutaneous Approach (ICD-10-PCS; 2024-04-17)
PROC: 02H633Z Insertion of Infusion Device into Right Atrium, Percutaneous Approach (ICD-10-PCS; 2024-04-17)
PROC: B518YZA Fluoroscopy of Superior Vena Cava using Other Contrast, Guidance (ICD-10-PCS; 2024-04-17)
DX: T82.41XA Breakdown (mechanical) of vascular dialysis catheter, initial encounter (principal); E87.1 Hypo-osmolality and hyponatremia; I12.0 Hypertensive chronic kidney disease with stage 5 chronic kidney disease or end stage renal disease; N39.0 Urinary tract infection, site not specified; Z16.24 Resistance to multiple antibiotics; N18.6 End stage renal disease; Z99.2 Dependence on renal dialysis; E78.5 Hyperlipidemia, unspecified; K21.9 Gastro-esophageal reflux disease without esophagitis; G35 Multiple sclerosis; B96.1 Klebsiella pneumoniae [K. pneumoniae] as the cause of diseases classified elsewhere; M89.8X9 Other specified disorders of bone, unspecified site; D63.8 Anemia in other chronic diseases classified elsewhere; Y84.8 Other medical procedures as the cause of abnormal reaction of the patient, or of later complication, without mention of misadventure at the time of the procedure; Y92.129 Unspecified place in nursing home as the place of occurrence of the external cause; Z87.891 Personal history of nicotine dependence
CPT/HCPCS: 36415; 71045-TC; 80048-TC; 81001; 83735-TC; 84100-TC; 85025-TC; 86706; 87081-TC; 87086-TC; 87340; 90935-TC; A4223; C1750; C1757; C1769; C1894; G0378; J0696; J2185; J2405; J2704; J2997; J3010; J7030; J7050; J7060